=== PATIENT | female | born 2000 | race Caucasian/White ===

== ENCOUNTER 2018-12-27 19:20 | Emergency (ER) | payer OTHER ==
--- NOTE | 2018-12-27 20:15 | EDM.PDOC ---
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 She is a 1 para 0 abortives 0. Her last menstrual period was 11/19/2018. She's been having some lower abdominal cramping since Sunday. It seems like it got much worse tonight and it's more in the left lower quadrant. She had a beta-hCG G Quant done on the it was 23 and on the it was 183. This seems to be a little low for a normal since she supposed to be 4.5 weeks approximately now. The cramping got worse this evening so she comes to the ER. She denies any urinary symptoms. She denies any spotting or bleeding. She does not appear to be in great distress presently. She 's had no recent illnesses no colds no cough no fever or chills. 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 Denies: Constipation, Diarrhea : Denies: Discharge, Dysuria Musculoskeletal: Reports: No Symptoms Skin: Reports: No Symptoms Neurological: Reports: No Symptoms Psychiatric: Reports: No Symptoms Hematologic/Lymphatic: Reports: No Symptoms ED EXAM - Physical Exam Exam: See Below Exam Limited By: No Limitations General Appearance: Alert, WD/WN, No Apparent Distress Eye Exam: Bilateral Eye: Normal Inspection Ears: Normal External Exam Nose: Normal Inspection Throat/Mouth: Normal Inspection, Normal Lips, Normal Voice, No Airway Compromise Head: Normocephalic Neck: Supple Respiratory/Chest: No Respiratory Distress, Lungs Clear, Normal Breath Sounds Cardiovascular: Regular Rate, Rhythm, No Murmur GI/Abdominal Exam: Normal Bowel Sounds, Soft, No Distention, Other (Palpation of the abdomen reveals no upper abdominal tenderness, there is no right lower quadrant tenderness and minimal midline abdominal tenderness, she has some slight tenderness in the left lower quadrant but there is no guarding there is no rigidity and there is no rebound.) Back Exam: Full Range of Motion Extremities: Normal Inspection, Normal Range of Motion Neurological: Alert, Oriented Psychiatric: Normal Affect, Normal Mood Skin Exam: Warm, Dry Course - Vital Signs Last Recorded V/S: Last Vital Signs Temp 98.2 F 12/27/18 19:29 Pulse 120 H 12/27/18 19:29 Resp 18 12/27/18 19:29 BP 138/81 12/27/18 19:29 Pulse Ox 100 12/27/18 19:29 - Orders/Labs/Meds Orders: Active Orders 24 hr Category Date Time Status OB Transvaginal [US] Stat Exams 12/27/18 21:12 Taken PATIENT RETYPE [BBK] Routine Lab 12/27/18 20:30 Results Labs: Laboratory Tests 12/27/18 12/27/18 12/27/18 Range/Units 20:02 20:02 20:30 HCG, Quant 983.0 mIU/mL Urine Color Yellow (Yellow) Urine Appearance Clear (Clear) Urine pH 5.5 (5.0-8.0) Ur Specific [place] > or = 1.030 (1.005-1.030) Urine Protein Trace H (Negative) Urine Glucose (UA) Negative (Negative) Urine Ketones 1+ H (Negative) Urine Occult Blood Negative (Negative) Urine Nitrite Negative (Negative) Urine Bilirubin Negative (Negative) Urine Urobilinogen 0.2 (0.2-1.0) Ur Leukocyte Esterase Negative (Negative) Urine RBC 0-5 (0-5) /hpf Urine WBC 0-5 (0-5) /hpf Ur Squamous Epith Cells 5-10 H (0-5) /hpf Urine Bacteria Few (FEW) /hpf Urine Mucus Many H (FEW) /hpf Blood Type O NEGATIVE - Radiology Interpretation Free Text/Narrative:: Ultrasound shows a tiny gestational sac in the uterus that is too early to date there was no other acute findings. - Re-Assessments/Exams Free Text/Narrative Re-Assessment/Exam: 12/27/18 23:58 I spoke to the patient regarding her test results blood work and the ultrasound. She is to follow up with Dr. Vernon by calling his office on Sunday and let them know that she was here in the ER. Departure - Departure Time of Disposition: 23:59 Disposition: Home, Self-Care 01 Condition: Good Clinical Impression: First trimester , Abdominal cramps - Discharge Information *PRESCRIPTION DRUG MONITORING PROGRAM REVIEWED*: Not Applicable *COPY OF PRESCRIPTION DRUG MONITORING REPORT IN PATIENT AKBAR: Not Applicable Referrals: Froy Vernon MD [Primary Care Provider] - Forms: ED Department Discharge Additional Instructions: Continue with gentle activity, if there is marked worsening of her symptoms or vaginal bleeding return to the ER, otherwise follow up with Dr. Dela Cruz and call his office on Sunday regarding your visit in the ER today and he will follow you for your . - My Orders Last 24 Hours: My Active Orders 12/27/18 20:30 PATIENT RETYPE [BBK] Routine 12/27/18 21:12 OB Transvaginal [US] Stat - Assessment/Plan Last 24 Hours: My Active Orders 12/27/18 20:30 PATIENT RETYPE [BBK] Routine 12/27/18 21:12 OB Transvaginal [US] Stat
--- NOTE | 2018-12-31 07:00 | US ---
Obstetrical ultrasound: Multiple real-time images were obtained transvaginally. Very small cystic area noted within the endometrial cavity. Very early is a possibility. Maternal right ovary not visualized, maternal left ovary is unremarkable. Small amount of free fluid is seen within the pelvis believed to be incidental. Impression: 1. Small cystic area within the endometrial cavity possibly due to very early . Follow-up exam recommended in 11-14 days to confirm. 2. Other incidental findings. Diagnostic code #2 I agree with preliminary report from [facility], finalized on 12/28/18, 12:46 AM Central Time
== END 2018-12-28 00:06 | disposition home or self-care (01) ==
LOC: JD.ED 19:20
DX: O99.89 Other specified diseases and conditions complicating pregnancy, childbirth and the puerperium (principal); R10.32 Left lower quadrant pain; Z88.1 Allergy status to other antibiotic agents; Z3A.01 Less than 8 weeks gestation of pregnancy
CPT/HCPCS: 36415; 76817; 76817-26; 81001; 84702; 86900; 86901; 99282; 99284-25

== ENCOUNTER 2019-08-28 06:39 | Inpatient (IN) | payer OTHER ==
[~2019-08-28 06:39] MED LIST: Bupivacaine 0.25% 10 ML SDV ONE
[2019-08-28] MEDS ORDERED: Misoprostol 100 MCG Tab VAG PRN (19:21)
[2019-08-28] MEDS ORDERED: Sodium Chloride 0.9% 10 ML Syringe FLUSH PRN (19:21)
[2019-08-28] MEDS ORDERED: Acetaminophen 325 MG Tab PO PRN (19:21)
[2019-08-28] MEDS ORDERED: Nalbuphine 10 MG/ML Syringe IVPUSH PRN (19:21)
[2019-08-28] MEDS ORDERED: Oxytocin/Lactated Ringers 10 UNIT/1,000 ML BAG IV SCH (19:30)
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
[2019-08-28] MEDS ORDERED: Misoprostol 25 MCG (1/4 of 100 MCG) Tab ONE (19:43)
[2019-08-28] MEDS ORDERED: Misoprostol 25 MCG (1/4 of 100 MCG) Tab VAG PRN (19:49)
--- NOTE | 2019-08-29 00:30 | PCM.PNLD ---
Labor Progress Note - VS & Meds Vital Signs: Last Vital Signs Temp 36.5 C 08/28/19 19:15 Pulse 108 H 08/28/19 19:15 Resp 16 08/28/19 19:15 BP 149/85 H 08/28/19 19:15 Pulse Ox 99 08/28/19 19:15 Active Medications: Current Medications Acetaminophen (Tylenol) 650 mg PO Q6H PRN PRN Reason: Pain (Mild 1-3) and fever Lactated Ringer's (Ringers, Lactated) 1,000 mls @ 40 mls/hr IV ASDIRECTED MINA Oxytocin/Lactated Ringer's (Pitocin In Lr 10 Units/1,000 Ml) 10 unit in 1,000 mls @ 100 mls/hr IV .CONTINUOUS MINA; Protocol Misoprostol (Cytotec) 25 mcg VAG Q4H PRN PRN Reason: cervical ripening Last Admin: 08/28/19 19:48 Dose: 25 mcg Nalbuphine HCl (Nubain) 10 mg IVPUSH Q2H PRN PRN Reason: Pain Sodium Chloride (Saline Flush) 10 ml FLUSH ASDIRECTED PRN PRN Reason: Keep Vein Open Discontinued Medications Misoprostol (Cytotec) 25 mcg VAG Q4H PRN PRN Reason: cervical ripening Misoprostol (Cytotec) Confirm Administered Dose 25 mcg .ROUTE .STK-MED ONE Stop: 08/28/19 19:44 Last Admin: 08/28/19 20:29 Dose: Not Given - Uterine Contractions Uterine Monitoring Mode: External [place] Contraction Frequency (min): 1.5-2.5 Contraction Duration (sec): 45-60 Contraction Intensity: Moderate to Strong Uterine Resting Tone: Soft - Monitoring Monitor Mode: Doppler/Auscultation Heart Rate (FHR) Baseline: 135 Heart Rate (FHR) Variability: Moderate (6-25 bmp) Accelerations: Present, 15x15 Decelerations: None Strip Review: Category I - Vaginal Exam Dilation (cm): 5 Effacement (Percent): 90 Station: -3 Cervical Position: Anterior Sterile Vaginal Exam Performed By: Froy Vernon Vaginal Exam Comment: Artificial rupture membranes performed with [place] with return of clear fluid. Mother and infant tolerated procedure without difficulty. - Labor Progress (Free Text) Labor Progress: * Patient with good progress after Mustafa bulb came out. Mustafa bulb was removed at approximately 12 AM and patient was noted to be 5 cm dilated at that time. * She continues to have mild range blood pressures and we will check CMP and urine protein/creatinine ratio at this time. Suspect that patient may be developing gestational hypertension versus preeclampsia without severe features. No symptoms of severe features of preeclampsia at this time. * Continuous monitoring with rupture of membranes * Patient may have epidural for anesthesia as desired * Anticipate vaginal delivery unless otherwise indicated. Froy Vernon MD 12:30 AM 08/29/2019
[2019-08-29] MEDS: Lactated Ringers 1,000 ML IV SCH ×3 (01:19→03:21)
[2019-08-29] MEDS ORDERED: Oxytocin/Lactated Ringers 10 UNIT/1,000 ML BAG IV SCH ×2 (01:30→07:54)
[2019-08-29] MEDS ORDERED: fentaNYL/Bupivacaine/NS 2 MCG-0.125% 250 ML EPIDUR PRN (01:47)
[2019-08-29] MEDS ORDERED: fentaNYL 100 MCG/2 ML SDV EPIDUR PRN (01:47)
[2019-08-29] MEDS ORDERED: ePHEDrine 50 MG/ML SDV IVPUSH PRN (01:47)
--- NOTE | 2019-08-29 01:49 | PCM.PREANE ---
Preanesthetic Assessment - Anesthesia/Transfusion/Family Hx Anesthesia History: No Prior Anesthesia Family History of Anesthesia Reaction: No Transfusion History: No Prior Transfusion(s) Intubation History: Unknown - Review of Systems General: No Symptoms Pulmonary: No Symptoms Cardiovascular: No Symptoms (elevated blood pressure today) Gastrointestinal: No Symptoms (GERD with ), Nausea Neurological: No Symptoms Other: Reports: None, Depression, Anxiety - Physical Assessment NPO Status Date: 08/28/19 NPO Status Time: 18:30 Vital Signs: Last Vital Signs Temp 36.5 C 08/28/19 19:15 Pulse 108 H 08/28/19 19:15 Resp 16 08/28/19 19:15 BP 149/85 H 08/28/19 19:15 Pulse Ox 99 08/28/19 19:15 Height: 1.68 m Weight: 111.13 kg ASA Class: 2 Mental Status: Alert & Oriented x3 Airway Class: Mallampati = 2 Dentition: Reports: Normal Dentition, Caries Thyro-Mental Finger Breadths: 3 Mouth Opening Finger Breadths: 3 ROM/Head Extension: Full Lungs: Clear to Auscultation, Normal Respiratory Effort Cardiovascular: Regular Rate, Regular Rhythm, No Murmurs - Lab Values: Laboratory Last Values WBC 9.49 K/mm3 (3.98-10.04) 08/28/19 19:40 RBC 4.66 M/mm3 (3.98-5.22) 08/28/19 19:40 Hgb 11.8 gm/dl (11.2-15.7) 08/28/19 19:40 Hct 37.6 % (34.1-44.9) 08/28/19 19:40 MCV 80.7 fl (79.4-94.8) 08/28/19 19:40 MCH 25.3 pg (25.6-32.2) L 08/28/19 19:40 MCHC 31.4 g/dl (32.2-35.5) L 08/28/19 19:40 RDW Std Deviation 43.3 fL (36.4-46.3) 08/28/19 19:40 Plt Count 189 K/mm3 (182-369) D 08/28/19 19:40 MPV 10.9 fl (9.4-12.3) 08/28/19 19:40 Neut % (Auto) 68.3 % (34.0-71.1) 08/28/19 19:40 Lymph % (Auto) 19.4 % (19.3-51.7) 08/28/19 19:40 [place] % (Auto) 9.8 % (4.7-12.5) 08/28/19 19:40 Eos % (Auto) 1.8 (0.7-5.8) 08/28/19 19:40 Baso % (Auto) 0.1 % (0.1-1.2) 08/28/19 19:40 Neut # (Auto) 6.48 K/mm3 (1.56-6.13) H 08/28/19 19:40 Lymph # (Auto) 1.84 K/mm3 (1.18-3.74) 08/28/19 19:40 [place] # (Auto) 0.93 K/mm3 (0.24-0.36) H 08/28/19 19:40 Eos # (Auto) 0.17 K/mm3 (0.04-0.36) 08/28/19 19:40 Baso # (Auto) 0.01 K/mm3 (0.01-0.08) 08/28/19 19:40 Sodium 135 mEq/L (136-145) L 08/29/19 00:40 Potassium 4.0 mEq/L (3.5-5.1) 08/29/19 00:40 Chloride 102 mEq/L (98-107) 08/29/19 00:40 Carbon Dioxide 21 mEq/L (21-32) 08/29/19 00:40 Anion Gap 16.0 (5-15) H 08/29/19 00:40 BUN 12 mg/dL (7-18) 08/29/19 00:40 Creatinine 0.7 mg/dL (0.55-1.02) 08/29/19 00:40 Est Cr Clr Drug Dosing 120.01 mL/min 08/29/19 00:40 Estimated GFR (MDRD) > 60 mL/min (>60) 08/29/19 00:40 BUN/Creatinine Ratio 17.1 (14-18) 08/29/19 00:40 Glucose 95 mg/dL (74-106) 08/29/19 00:40 Calcium 8.6 mg/dL (8.5-10.1) 08/29/19 00:40 Total Bilirubin 0.2 mg/dL (0.2-1.0) 08/29/19 00:40 AST 25 U/L (15-37) 08/29/19 00:40 ALT 27 U/L (14-59) 08/29/19 00:40 Alkaline Phosphatase 183 U/L (46-116) H 08/29/19 00:40 Total Protein 6.8 g/dl (6.4-8.2) 08/29/19 00:40 Albumin 2.6 g/dl (3.4-5.0) L 08/29/19 00:40 Globulin 4.2 gm/dL 08/29/19 00:40 Albumin/Globulin Ratio 0.6 (1-2) L 08/29/19 00:40 Ur Random Creatinine 95.0 mg/dL (30.0-125.0) 08/29/19 00:25 U Random Total Protein 63.0 mg/dL (0.0-11.8) H 08/29/19 00:25 Protein/Creatinin Ratio 663.2 mg/g (0-149) H 08/29/19 00:25 RPR Non-reactive (NONREACTIVE) 08/28/19 19:40 Above labs reviewed and noted and within acceptable ranges to proceed with epidural. - Allergies Allergies/Adverse Reactions: Allergies Allergy/AdvReac Type Severity Reaction Status Date / Time amoxicillin Allergy Rash Verified 08/28/19 19:38 - Anesthesia Plan Pre-Op Medication Ordered: None - Acknowledgements Anesthesia Type Planned: Epidural Pt an Appropriate Candidate for the Planned Anesthesia: Yes Alternatives and Risks of Anesthesia Discussed w Pt/Guardian: Yes Pt/Guardian Understands and Agrees with Anesthesia Plan: Yes PreAnesthesia Questionnaire HEENT History: Reports: Impaired Vision Other HEENT History: Wears glasses [employer] History: Reports: Other OB/BYN History: Currently Psychiatric History: Reports: Anxiety, Depression Hematologic History: Reports: Anemia - SUBSTANCE USE Smoking Status *Q: Never Smoker Tobacco Use Within Last Twelve Months: No Recreational Drug Use History: No - HOME MEDS Home Medications: Home Meds Pnv No.95/Ferrous Fum/Folic AC [ Caplet] 1 tab PO DAILY 12/27/18 [ History] Ondansetron [Zofran ODT] 4 mg PO Q6H PRN 08/28/19 [History] - CURRENT (IN HOUSE) MEDS Current Meds: Current Medications Acetaminophen (Tylenol) 650 mg PO Q6H PRN PRN Reason: Pain (Mild 1-3) and fever Lactated Ringer's (Ringers, Lactated) 1,000 mls @ 40 mls/hr IV ASDIRECTED MINA Last Admin: 08/29/19 01:19 Dose: 999 mls/hr Oxytocin/Lactated Ringer's (Pitocin In Lr 10 Units/1,000 Ml) 10 unit in 1,000 mls @ 100 mls/hr IV .CONTINUOUS MINA; Protocol Oxytocin/Lactated Ringer's (Pitocin In Lr 10 Units/1,000 Ml) 10 unit in 1,000 mls @ 12 mls/hr IV TITRATE MINA; Protocol Misoprostol (Cytotec) 25 mcg VAG Q4H PRN PRN Reason: cervical ripening Last Admin: 08/28/19 19:48 Dose: 25 mcg Nalbuphine HCl (Nubain) 10 mg IVPUSH Q2H PRN PRN Reason: Pain Sodium Chloride (Saline Flush) 10 ml FLUSH ASDIRECTED PRN PRN Reason: Keep Vein Open Discontinued Medications Misoprostol (Cytotec) 25 mcg VAG Q4H PRN PRN Reason: cervical ripening Misoprostol (Cytotec) Confirm Administered Dose 25 mcg .ROUTE .STK-MED ONE Stop: 08/28/19 19:44 Last Admin: 08/28/19 20:29 Dose: Not Given
[2019-08-29] MEDS ORDERED: Bupivacaine/fentaNYL/NS 100 ML Bag EPIDUR PRN (01:50)
[2019-08-29] MEDS ORDERED: Phenylephrine 1 MG in Sodium Chloride 0.9% 10 ML IV SCH (02:00)
--- NOTE | 2019-08-29 07:29 | PCM.DEL ---
L & D Note - General Info Date of Service: 08/29/19 Mother's Due Date: 09/02/19 - Delivery Note Labor: Augmented by ARM, Augmented by Oxytocin Cervical Ripening Method: Balloon Device (16 Monegasque Mustafa bulb catheter filled with 50 mL of sterile saline), Misoprostil, Oxytocin Delivery Outcome: Livebirth Infant Delivery Method: Spontaneous Vaginal Delivery-Single Presentation: Right Occiput Anterior (BOLA) Nuchal Cord: None Anesthesia Type: Epidural Amniotic Fluid Description: Clear Episiotomy Type: None Laceration: Other (Bilateral inferior hymenal ring tears that were repaired with interrupted figure-of-8 sutures with 4-0 Vicryl) Suture type: Vicryl Suture size: 4-0 Placenta: Intact, Spontaneous Cord: 3 Vessels Estimated Blood Loss: 250 Resuscitation Needed: Yes : Suctioned, Bulb Syringe, Stimulated, Warmed, [place] Used, Warmer Used Provider: Froy Vernon Score 1 min: 4 Score 5 min: 9 Second Stage Interventions: Reports: Pushing Effectively, Pushing, Pulls Own Legs Back, Pushing, Stirrups/Leg Supports Delivery Comments (Free Text/Narrative):: Stage I: Francisca Parmar was admitted for elective induction of labor. On admission her cervix was dilated to 1.5 cm. She was GBS negative. She had a 16 Monegasque transcervical Mustafa bulb placed manually and filled with 50 mL of sterile saline. She was given 1 dose of Cytotec for cervical ripening. The Mustafa bulb came out spontaneously approximately 4 hours after placement. She had artificial rupture membranes with clear fluid. She had persistently mildly elevated blood pressures and additional labs were sent for evaluation of preeclampsia. Her creatinine liver enzymes were normal. Her urine protein/ creatinine ratio was elevated at 0.663. Patient diagnosed with severe preeclampsia at this time. She was given an epidural for anesthesia. She was started on Pitocin for augmentation of labor. She progressed to complete and pushing. Stage II: On 08/29/2019 she had a normal vaginal delivery of a live male infant at 06:39. Apgars of 4 & 9. Weight of 3380 g (7 lbs 7.2 oz). Length of 20.5 inches. There was no nuchal cord. Infant was delivered in BOLA position. The cord was doubly clamped and cut by father of the infant. Infant was placed on mother's abdomen and taken to the warmer for additional resuscitation due to low 1 minute of 4. Stage III: She had a spontaneous delivery of an intact placenta in [place] presentation. Three vessel cord. She was given pitocin and fundal massage. She had bilateral inferior hymenal ring tears from the underlying vaginal tissue that were bleeding. The right side had 2 interrupted [id number] sutures with 4-0 Vicryl for hemostasis. A interrupted [id number] suture was placed on the left side with 4-0 Vicryl and hemostasis was noted. Mom and baby were stable to recovery. EBL of 250 mL. Froy Vernon MD 7:17 AM 08/29/2019 Induction Criteria - Thompson Score Thompson Score Dilation: 1-2 cm Thompson Score Effacement: 60-70% Thompson Score Infant's Station: -3 Thompson Score Consistency: Medium Thompson Score Cervix Position: Anterior Thompson Score Total: 6 Thompson Score Presenting Part: Reports: Cephalic - Induction Gestational Age >/= 39 wks: Yes Estimated Pelvis: Reports: Adequate Reassuring Monitoring Strip: Yes Absence of Tachy Systole: Yes - Augmentation Estimated Pelvis: Reports: Adequate Weight Estimated:: Reports: AGA Reassuring Monitoring Strip: Yes Absence of Tachy Systole: Yes - General Info Date of Service: 08/29/19 - Patient Data Vitals - Most Recent: Last Vital Signs Temp 36.5 C 08/28/19 19:15 Pulse 108 H 08/28/19 19:15 Resp 16 08/28/19 19:15 BP 149/85 H 08/28/19 19:15 Pulse Ox 99 08/28/19 19:15 Weight - Most Recent: 111.13 kg I&O - Last 24 Hours: Intake & Output 08/28/19 08/29/19 08/29/19 22:59 06:59 14:59 Intake Total 2000 Output Total 600 Balance 1400 Lab Results Last 24 Hours: Laboratory Results - last 24 hr 08/28/19 08/28/19 08/29/19 Range/Units 19:40 19:40 00:25 WBC 9.49 (3.98-10.04) K/mm3 RBC 4.66 (3.98-5.22) M/mm3 Hgb 11.8 (11.2-15.7) gm/dl Hct 37.6 (34.1-44.9) % MCV 80.7 (79.4-94.8) fl MCH 25.3 L (25.6-32.2) pg MCHC 31.4 L (32.2-35.5) g/dl RDW Std Deviation 43.3 (36.4-46.3) fL Plt Count 189 D (182-369) K/mm3 MPV 10.9 (9.4-12.3) fl Neut % (Auto) 68.3 (34.0-71.1) % Lymph % (Auto) 19.4 (19.3-51.7) % [place] % (Auto) 9.8 (4.7-12.5) % Eos % (Auto) 1.8 (0.7-5.8) Baso % (Auto) 0.1 (0.1-1.2) % Neut # (Auto) 6.48 H (1.56-6.13) K/mm3 Lymph # (Auto) 1.84 (1.18-3.74) K/mm3 [place] # (Auto) 0.93 H (0.24-0.36) K/mm3 Eos # (Auto) 0.17 (0.04-0.36) K/mm3 Baso # (Auto) 0.01 (0.01-0.08) K/mm3 Sodium (136-145) mEq/L Potassium (3.5-5.1) mEq/L Chloride (98-107) mEq/L Carbon Dioxide (21-32) mEq/L Anion Gap (5-15) BUN (7-18) mg/dL Creatinine (0.55-1.02) mg/dL Est Cr Clr Drug Dosing mL/min Estimated GFR (MDRD) (>60) mL/min BUN/Creatinine Ratio (14-18) Glucose (74-106) mg/dL Calcium (8.5-10.1) mg/dL Total Bilirubin (0.2-1.0) mg/dL AST (15-37) U/L ALT (14-59) U/L Alkaline Phosphatase (46-116) U/L Total Protein (6.4-8.2) g/dl Albumin (3.4-5.0) g/dl Globulin gm/dL Albumin/Globulin Ratio (1-2) Ur Random Creatinine 95.0 (30.0-125.0) mg/dL U Random Total Protein 63.0 H (0.0-11.8) mg/dL Protein/Creatinin Ratio 663.2 H (0-149) mg/g RPR Non-reactive (NONREACTIVE) 08/29/19 Range/Units 00:40 WBC (3.98-10.04) K/mm3 RBC (3.98-5.22) M/mm3 Hgb (11.2-15.7) gm/dl Hct (34.1-44.9) % MCV (79.4-94.8) fl MCH (25.6-32.2) pg MCHC (32.2-35.5) g/dl RDW Std Deviation (36.4-46.3) fL Plt Count (182-369) K/mm3 MPV (9.4-12.3) fl Neut % (Auto) (34.0-71.1) % Lymph % (Auto) (19.3-51.7) % [place] % (Auto) (4.7-12.5) % Eos % (Auto) (0.7-5.8) Baso % (Auto) (0.1-1.2) % Neut # (Auto) (1.56-6.13) K/mm3 Lymph # (Auto) (1.18-3.74) K/mm3 [place] # (Auto) (0.24-0.36) K/mm3 Eos # (Auto) (0.04-0.36) K/mm3 Baso # (Auto) (0.01-0.08) K/mm3 Sodium 135 L (136-145) mEq/L Potassium 4.0 (3.5-5.1) mEq/L Chloride 102 (98-107) mEq/L Carbon Dioxide 21 (21-32) mEq/L Anion Gap 16.0 H (5-15) BUN 12 (7-18) mg/dL Creatinine 0.7 (0.55-1.02) mg/dL Est Cr Clr Drug Dosing 120.01 mL/min Estimated GFR (MDRD) > 60 (>60) mL/min BUN/Creatinine Ratio 17.1 (14-18) Glucose 95 (74-106) mg/dL Calcium 8.6 (8.5-10.1) mg/dL Total Bilirubin 0.2 (0.2-1.0) mg/dL AST 25 (15-37) U/L ALT 27 (14-59) U/L Alkaline Phosphatase 183 H (46-116) U/L Total Protein 6.8 (6.4-8.2) g/dl Albumin 2.6 L (3.4-5.0) g/dl Globulin 4.2 gm/dL Albumin/Globulin Ratio 0.6 L (1-2) Ur Random Creatinine (30.0-125.0) mg/dL U Random Total Protein (0.0-11.8) mg/dL Protein/Creatinin Ratio (0-149) mg/g RPR (NONREACTIVE) Med Orders - Current: Current Medications Acetaminophen (Tylenol) 650 mg PO Q6H PRN PRN Reason: Pain (Mild 1-3) and fever Ephedrine Sulfate (Ephedrine Sulfate) 5 mg IVPUSH ASDIRECTED PRN PRN Reason: Hypotension Fentanyl (Sublimaze) 100 mcg EPIDUR Q3H PRN PRN Reason: Pain Last Admin: 08/29/19 01:57 Dose: 100 mcg Fentanyl/Bupivacaine HCl (Fentanyl/Bupivacaine/Ns 2 Mcg-0.125% 100 Ml) 0 ml EPIDUR CONTINUOUS PRN PRN Reason: Pain Last Admin: 08/29/19 01:57 Dose: 100 ml Lactated Ringer's (Ringers, Lactated) 1,000 mls @ 40 mls/hr IV ASDIRECTED MINA Last Admin: 08/29/19 03:21 Dose: 999 mls/hr Oxytocin/Lactated Ringer's (Pitocin In Lr 10 Units/1,000 Ml) 10 unit in 1,000 mls @ 100 mls/hr IV .CONTINUOUS MINA; Protocol Oxytocin/Lactated Ringer's (Pitocin In Lr 10 Units/1,000 Ml) 10 unit in 1,000 mls @ 12 mls/hr IV TITRATE MINA; Protocol Last Titration: 08/29/19 06:40 Dose: 999 mls/hr Phenylephrine HCl 1 mg/ Sodium (Chloride) 10.1 mls @ 1 mls/sec IV TITRATE MINA; Protocol Misoprostol (Cytotec) 25 mcg VAG Q4H PRN PRN Reason: cervical ripening Last Admin: 08/28/19 19:48 Dose: 25 mcg Nalbuphine HCl (Nubain) 10 mg IVPUSH Q2H PRN PRN Reason: Pain Sodium Chloride (Saline Flush) 10 ml FLUSH ASDIRECTED PRN PRN Reason: Keep Vein Open Discontinued Medications Fentanyl/Bupivacaine HCl (Fentanyl/Bupivacaine/Ns 2 Mcg-0.125% 250 Ml) 0 ml EPIDUR CONTINUOUS PRN PRN Reason: Pain Misoprostol (Cytotec) 25 mcg VAG Q4H PRN PRN Reason: cervical ripening Misoprostol (Cytotec) Confirm Administered Dose 25 mcg .ROUTE .[employer]-MED ONE Stop: 08/28/19 19:44 Last Admin: 08/28/19 20:29 Dose: Not Given - Problem List & Annotations (1) Rh negative status during SNOMED Code(s): 632238894 Code(s): O26.899 - OTH RELATED CONDITIONS, UNSPECIFIED TRIMESTER; Z67.91 - UNSPECIFIED BLOOD TYPE, RH NEGATIVE Status: Acute Current Visit: Yes (2) Preeclampsia SNOMED Code(s): 442897570 Code(s): O14.90 - UNSPECIFIED PRE-ECLAMPSIA, UNSPECIFIED TRIMESTER Status: Acute Current Visit: Yes (3) Vaginal delivery SNOMED Code(s): 157728929 Code(s): O80 - ENCOUNTER FOR FULL-TERM UNCOMPLICATED DELIVERY Status: Acute Current Visit: Yes (4) First degree perineal laceration during delivery SNOMED Code(s): 960342488 Code(s): O70.0 - FIRST DEGREE PERINEAL LACERATION DURING DELIVERY Status: Acute Current Visit: Yes (5) 39 weeks gestation of SNOMED Code(s): 35564962 Code(s): Z3A.39 - 39 WEEKS GESTATION OF Status: Acute Current Visit: Yes (6) Polymorphic eruption of SNOMED Code(s): 24507081 Code(s): O26.86 - PRURITIC URTICARIAL PAPULES AND PLAQUES OF (PUPPP ) Status: Acute Current Visit: Yes (7) Anxiety SNOMED Code(s): 38325743 Code(s): F41.9 - ANXIETY DISORDER, UNSPECIFIED Status: Acute Current Visit: No - Problem List Review Problem List Initiated/Reviewed/Updated: Yes - My Orders Last 24 Hours: My Active Orders 01/23/20 19:21 Urinary Catheter Assessment [RC] ASDIRECTED Acetaminophen [Tylenol] 650 mg PO Q6H PRN Nalbuphine [Nubain] 10 mg IVPUSH Q2H PRN Sodium Chloride 0.9% [Saline Flush] 10 ml FLUSH ASDIRECTED PRN Resuscitation Status Routine 08/28/19 19:22 Activity as Tolerated [RC] PFP Communication Order [RC] ASDIRECTED Communication Order [RC] ASDIRECTED Communication Order [RC] ASDIRECTED Monitoring [RC] INTERMITTENT Notify Provider [RC] ASDIRECTED Notify Provider [RC] PFP Notify Provider [RC] PRN Peripheral IV Care [RC] Q2HR Up ad Berta [RC] ASDIRECTED Electronic Heart Tones Ext w TOCO [WOMSER] Routine Electronic Heart Tones Internal [WOMSER] Per Unit Routine Peripheral IV Insertion Adult [OM.PC] Routine 08/28/19 19:23 Patient Status [ADT] Routine Notify Provider [RC] ASDIRECTED 08/28/19 19:25 Notify Provider Vital Signs [RC] PRN Pump Management, Intrathecal [RC] ASDIRECTED 08/28/19 19:30 Lactated Ringers [Ringers, Lactated] 1,000 ml IV ASDIRECTED Oxytocin/Lactated Ringers [Pitocin in LR 10 Units/1,000 ML] 10 unit in 1,000 ml IV .CONTINUOUS Medication Administration Instruction [OM.PC] ASDIRECTED 08/28/19 19:49 miSOPROStoL [Cytotec] 25 mcg VAG Q4H PRN 08/28/19 Dinner Regular Diet [DIET] 08/29/19 01:29 Communication Order [RC] ASDIRECTED Notify Provider [RC] ASDIRECTED 08/29/19 01:30 Oxytocin/Lactated Ringers [Pitocin in LR 10 Units/1,000 ML] 10 unit in 1,000 ml IV TITRATE 08/29/19 07:18 Patient Status Manage Transfer [TRANSFER] Routine - Plan Plan:: Admit to inpatient following normal spontaneous vaginal delivery Continue Pitocin per unit protocol following delivery of placenta and lactated Ringer's until tolerating regular diet Regular diet Vitals per unit routine Ibuprofen and Tylenol for pain control Assist with breast-feeding as needed Continue to monitor lochia Patient with Rh- status and will evaluate Rh status and administer RhoGam as indicated Anticipate discharge home on day #1 or 2 depending on status Froy Vernon MD 7:17 AM 08/29/2019
[2019-08-29] MEDS ORDERED: Benzocaine/Menthol 20%-0.5% Spray 56 GM Canister TOP PRN (07:54)
[2019-08-29] MEDS ORDERED: Hydrocortisone Acetate 25 MG Supp RECTAL PRN (07:54)
[2019-08-29] MEDS ORDERED: Witch Hazel Medicated Pads 40/Jar TOP PRN (07:54)
[2019-08-29] MEDS: Ondansetron 4 MG Tab.DIS PO PRN (12:11)
[2019-08-29] MEDS: Acetaminophen 325 MG Tab PO PRN (16:45)
[2019-08-29] MEDS: Prenatal Multivitamin with Calcium/Folic Acid/Iron Tab PO SCH (19:54)
[2019-08-29] MEDS: Ibuprofen 600 MG Tab PO PRN (20:45)
[2019-08-29] MEDS: Docusate Sodium 100 MG Cap PO PRN (20:45)
--- NOTE | 2019-08-30 07:07 | PCM.PNPP ---
- General Info Date of Service: 08/30/19 Functional Status: Reports: Pain Controlled, Tolerating Diet, Ambulating, Urinating - Review of Systems General: Reports: No Symptoms Pulmonary: Reports: No Symptoms Cardiovascular: Reports: No Symptoms Gastrointestinal: Reports: Abdominal Pain (managed with medications ) Genitourinary: Reports: No Symptoms Musculoskeletal: Reports: No Symptoms Neurological: Reports: No Symptoms - Patient Data Vital Signs - Most Recent: Last Vital Signs Temp 36.4 C 08/30/19 03:24 Pulse 88 08/30/19 03:24 Resp 14 08/30/19 03:24 BP 126/66 08/30/19 03:24 Pulse Ox 99 08/30/19 03:24 Weight - Most Recent: 111.13 kg I&O - Last 24 Hours: Intake & Output 08/29/19 08/30/19 08/30/19 22:59 06:59 14:59 Intake Total 482 Balance 482 Lab Results - Last 24 Hours: Laboratory Results - last 24 hr 08/29/19 Range/Units 15:15 Blood Type O NEGATIVE Gel Antibody Screen Positive Screen 0 ros/5 flds - neg RhIG Candidate? Yes Rhogam Indicated Yes, baby rh pos H Med Orders - Current: Current Medications Acetaminophen (Tylenol) 650 mg PO Q6H PRN PRN Reason: mild pain or fever Last Admin: 08/29/19 16:45 Dose: 650 mg Benzocaine/Menthol (Dermoplast Pain Relief Valentine) 0 gm TOP ASDIRECTED PRN PRN Reason: Perineal Comfort Measure Docusate Sodium (Colace) 100 mg PO BID PRN PRN Reason: Constipation Last Admin: 08/29/19 20:45 Dose: 100 mg Hydrocortisone Acetate (Anucort-Hc) 25 mg RECTAL BID PRN PRN Reason: Hemorrhoid pain Oxytocin/Lactated Ringer's (Pitocin In Lr 10 Units/1,000 Ml) 10 unit in 1,000 mls @ 100 mls/hr IV TITRATE MINA; Protocol Ibuprofen (Motrin) 600 mg PO Q6H PRN PRN Reason: Mild pain or fever Last Admin: 08/29/19 20:45 Dose: 600 mg Ondansetron HCl (Zofran Odt) 4 mg PO Q4H PRN PRN Reason: Nausea/Vomiting Last Admin: 08/29/19 12:11 Dose: 4 mg Prenat Multivit/Net Development Manager/Iron/Folic Ac ( Plus Iron) 1 each PO DAILY MINA Last Admin: 08/29/19 19:54 Dose: Not Given Sabrina Pearson (Tucks) 1 pad TOP ASDIRECTED PRN PRN Reason: Perineal Comfort Measure Discontinued Medications Acetaminophen (Tylenol) 650 mg PO Q6H PRN PRN Reason: Pain (Mild 1-3) and fever Bupivacaine HCl (Sensorcaine-Mpf 0.25%) 10 ml .ROUTE .[employer]-MED ONE Stop: 08/28/19 00:01 Ephedrine Sulfate (Ephedrine Sulfate) 5 mg IVPUSH ASDIRECTED PRN PRN Reason: Hypotension Fentanyl (Sublimaze) 100 mcg EPIDUR Q3H PRN PRN Reason: Pain Last Admin: 08/29/19 01:57 Dose: 100 mcg Fentanyl/Bupivacaine HCl (Fentanyl/Bupivacaine/Ns 2 Mcg-0.125% 250 Ml) 0 ml EPIDUR CONTINUOUS PRN PRN Reason: Pain Fentanyl/Bupivacaine HCl (Fentanyl/Bupivacaine/Ns 2 Mcg-0.125% 100 Ml) 0 ml EPIDUR CONTINUOUS PRN PRN Reason: Pain Last Admin: 08/29/19 01:57 Dose: 100 ml Lactated Ringer's (Ringers, Lactated) 1,000 mls @ 40 mls/hr IV ASDIRECTED MINA Last Admin: 08/29/19 03:21 Dose: 999 mls/hr Oxytocin/Lactated Ringer's (Pitocin In Lr 10 Units/1,000 Ml) 10 unit in 1,000 mls @ 100 mls/hr IV .CONTINUOUS MINA; Protocol Oxytocin/Lactated Ringer's (Pitocin In Lr 10 Units/1,000 Ml) 10 unit in 1,000 mls @ 12 mls/hr IV TITRATE MINA; Protocol Last Titration: 08/29/19 06:40 Dose: 999 mls/hr Phenylephrine HCl 1 mg/ Sodium (Chloride) 10.1 mls @ 1 mls/sec IV TITRATE MINA; Protocol Misoprostol (Cytotec) 25 mcg VAG Q4H PRN PRN Reason: cervical ripening Misoprostol (Cytotec) Confirm Administered Dose 25 mcg .ROUTE .[employer] ONE Stop: 08/28/19 19:44 Last Admin: 08/28/19 20:29 Dose: Not Given Misoprostol (Cytotec) 25 mcg VAG Q4H PRN PRN Reason: cervical ripening Last Admin: 08/28/19 19:48 Dose: 25 mcg Nalbuphine HCl (Nubain) 10 mg IVPUSH Q2H PRN PRN Reason: Pain Sodium Chloride (Saline Flush) 10 ml FLUSH ASDIRECTED PRN PRN Reason: Keep Vein Open - Interaction Infant Disposition, : in Room with Family Interaction: Holding Feeding: Attempted ; Nursed Fair/Poor, Bottle Fed Infant Support Person: Significant Other - Recovery Exam Fundal Tone: Firm Fundal Level: 1 Fingerbreadths Below Umbilicus Fundal Placement: Midline Lochia Amount: Scant, Small Lochia Color: Rubra/Red Perineum Description: Other (see below) Other Perinuem Description: Hymen laceration with repair Episiotomy/Laceration: Approximated Bladder Status: Voiding - Exam General: Alert, Oriented, Cooperative GI/Abdominal Exam: Soft, Non-Tender Extremities: Normal Inspection Skin: Warm, Dry, Intact - Problem List & Annotations (1) Vaginal delivery SNOMED Code(s): 259769706 Code(s): O80 - ENCOUNTER FOR FULL-TERM UNCOMPLICATED DELIVERY Status: Acute Current Visit: Yes - Problem List Review Problem List Initiated/Reviewed/Updated: Yes - Assessment Assessment:: PPD#1 - Plan Plan:: Routine cares Breast and bottle feeding BP's normal after delivery Discharge home tomorrow
[2019-08-30] MEDS: Acetaminophen 325 MG Tab PO PRN (07:23)
[2019-08-30] MEDS: Ibuprofen 600 MG Tab PO PRN ×3 (08:45→21:01)
[2019-08-30] MEDS: Prenatal Multivitamin with Calcium/Folic Acid/Iron Tab PO SCH (08:46)
--- NOTE | 2019-08-30 09:55 | PCM48HPAN ---
Post Anesthesia Note - EVALUATION WITHIN 48HRS OF ANESTHETIC Vital Signs in Normal Range: Yes Patient Participated in Evaluation: Yes Respiratory Function Stable: Yes Airway Patent: Yes Cardiovascular Function Stable: Yes Hydration Status Stable: Yes Pain Control Satisfactory: Yes (minor soreness in the back. reiterated importance of preventing back strain) Nausea and Vomiting Control Satisfactory: Yes Mental Status Recovered: Yes Vital Signs: Last Vital Signs Temp 97.5 F 08/30/19 03:24 Pulse 88 08/30/19 03:24 Resp 14 08/30/19 03:24 BP 126/66 08/30/19 03:24 Pulse Ox 99 08/30/19 03:24
[2019-08-30] MEDS: Docusate Sodium 100 MG Cap PO PRN (21:03)
[2019-08-30] MEDS: Ondansetron 4 MG Tab.DIS PO PRN (21:59)
[2019-08-31] MEDS: Ibuprofen 600 MG Tab PO PRN ×2 (03:35→08:40)
--- NOTE | 2019-08-31 07:09 | PCM.DCSUM1 ---
Discharge Summary - Discharge Data Discharge Date: 08/31/19 Discharge Disposition: Home, Self-Care 01 Condition: Good - Referral to Home Health Primary Care Physician: Froy Vernon MD - Discharge Diagnosis/Problem(s) (1) Vaginal delivery SNOMED Code(s): 833929752 ICD Code: O80 - ENCOUNTER FOR FULL-TERM UNCOMPLICATED DELIVERY Status: Acute Current Visit: Yes - Patient Summary/Data Complications: None Consults: None Recommended Follow-up Testing/Procedures: Follow up in 1-2 weeks for check Hospital Course: 18 y/o admitted for elective IOL at 39 weeks. This was done with cytotec and then pitocin. She did well and underwent an uncomplicated . See delivery note. did well and was discharged home on PPD#2 - Patient Instructions Diet: Regular Diet as Tolerated Activity: As Tolerated Activity, Other: Pelvic rest for 6 weeks Driving: May Drive Today Showering/Bathing: May Shower Showering/Bathing, Other: May Bathe Notify Provider of: Fever, Increased Pain, Swelling and Redness, Drainage, Nausea and/or Vomiting - Discharge Plan *PRESCRIPTION DRUG MONITORING PROGRAM REVIEWED*: No *COPY OF PRESCRIPTION DRUG MONITORING REPORT IN PATIENT AKBAR: No Home Medications: Home Meds Pnv No.95/Ferrous Fum/Folic AC [ Caplet] 1 tab PO DAILY 12/27/18 [ History] Ibuprofen [Motrin] 600 mg PO Q6H PRN tablet 08/30/19 [Rx] Referrals: Froy Vernon MD [Primary Care Provider] - (1-2 weeks for check ) - Discharge Summary/Plan Comment DC Time >30 min.: No - Patient Data Vitals - Most Recent: Last Vital Signs Temp 36.9 C 08/31/19 03:28 Pulse 65 08/31/19 03:28 Resp 15 08/31/19 03:28 BP 127/69 08/31/19 03:28 Pulse Ox 97 08/31/19 03:28 Weight - Most Recent: 111.13 kg Med Orders - Current: Current Medications Acetaminophen (Tylenol) 650 mg PO Q6H PRN PRN Reason: mild pain or fever Last Admin: 08/30/19 07:23 Dose: 650 mg Benzocaine/Menthol (Dermoplast Pain Relief [place]) 0 gm TOP ASDIRECTED PRN PRN Reason: Perineal Comfort Measure Docusate Sodium (Colace) 100 mg PO BID PRN PRN Reason: Constipation Last Admin: 08/30/19 21:03 Dose: 100 mg Hydrocortisone Acetate (Anucort-Hc) 25 mg RECTAL BID PRN PRN Reason: Hemorrhoid pain Oxytocin/Lactated Ringer's (Pitocin In Lr 10 Units/1,000 Ml) 10 unit in 1,000 mls @ 100 mls/hr IV TITRATE MINA; Protocol Ibuprofen (Motrin) 600 mg PO Q6H PRN PRN Reason: Mild pain or fever Last Admin: 08/30/19 21:01 Dose: 600 mg Ondansetron HCl (Zofran Odt) 4 mg PO Q4H PRN PRN Reason: Nausea/Vomiting Last Admin: 08/30/19 21:59 Dose: 4 mg Prenat Multivit/[place]/Iron/Folic Ac ( Plus Iron) 1 each PO DAILY MINA Last Admin: 08/30/19 08:46 Dose: 1 each Witch Lili (Tucks) 1 pad TOP ASDIRECTED PRN PRN Reason: Perineal Comfort Measure Last Admin: 08/30/19 22:00 Dose: 1 tub Discontinued Medications Acetaminophen (Tylenol) 650 mg PO Q6H PRN PRN Reason: Pain (Mild 1-3) and fever Bupivacaine HCl (Sensorcaine-Mpf 0.25%) 10 ml .ROUTE .STK-MED ONE Stop: 08/28/19 00:01 Ephedrine Sulfate (Ephedrine Sulfate) 5 mg IVPUSH ASDIRECTED PRN PRN Reason: Hypotension Fentanyl (Sublimaze) 100 mcg EPIDUR Q3H PRN PRN Reason: Pain Last Admin: 08/29/19 01:57 Dose: 100 mcg Fentanyl/Bupivacaine HCl (Fentanyl/Bupivacaine/Ns 2 Mcg-0.125% 250 Ml) 0 ml EPIDUR CONTINUOUS PRN PRN Reason: Pain Fentanyl/Bupivacaine HCl (Fentanyl/Bupivacaine/Ns 2 Mcg-0.125% 100 Ml) 0 ml EPIDUR CONTINUOUS PRN PRN Reason: Pain Last Admin: 08/29/19 01:57 Dose: 100 ml Lactated Ringer's (Ringers, Lactated) 1,000 mls @ 40 mls/hr IV ASDIRECTED MINA Last Admin: 08/29/19 03:21 Dose: 999 mls/hr Oxytocin/Lactated Ringer's (Pitocin In Lr 10 Units/1,000 Ml) 10 unit in 1,000 mls @ 100 mls/hr IV .CONTINUOUS MINA; Protocol Oxytocin/Lactated Ringer's (Pitocin In Lr 10 Units/1,000 Ml) 10 unit in 1,000 mls @ 12 mls/hr IV TITRATE MINA; Protocol Last Titration: 08/29/19 06:40 Dose: 999 mls/hr Phenylephrine HCl 1 mg/ Sodium (Chloride) 10.1 mls @ 1 mls/sec IV TITRATE MINA; Protocol Misoprostol (Cytotec) 25 mcg VAG Q4H PRN PRN Reason: cervical ripening Misoprostol (Cytotec) Confirm Administered Dose 25 mcg .ROUTE .[facility] ONE Stop: 08/28/19 19:44 Last Admin: 08/28/19 20:29 Dose: Not Given Misoprostol (Cytotec) 25 mcg VAG Q4H PRN PRN Reason: cervical ripening Last Admin: 08/28/19 19:48 Dose: 25 mcg Nalbuphine HCl (Nubain) 10 mg IVPUSH Q2H PRN PRN Reason: Pain Sodium Chloride (Saline Flush) 10 ml FLUSH ASDIRECTED PRN PRN Reason: Keep Vein Open
[2019-08-31] MEDS: Docusate Sodium 100 MG Cap PO PRN (08:38)
[2019-08-31] MEDS: Prenatal Multivitamin with Calcium/Folic Acid/Iron Tab PO SCH (08:39)
== END 2019-08-31 10:00 | disposition home or self-care (01) | DRG 807 ==
LOC: JD.OB 06:39 → OBSVTOIN 08-29 06:39 → JD.OB 08-29 06:40
PROVIDERS: ADMIT Obstetrics & Gynecology; ATTEND Obstetrics & Gynecology
PROC: 10E0XZZ Delivery of Products of Conception, External Approach (ICD-10-PCS; principal; 2019-08-29)
PROC: 0HQ9XZZ Repair Perineum Skin, External Approach (ICD-10-PCS; 2019-08-29)
PROC: 3E0P7VZ Introduction of Hormone into Female Reproductive, Via Natural or Artificial Opening (ICD-10-PCS; 2019-08-29)
PROC: 3E0R3BZ Introduction of Anesthetic Agent into Spinal Canal, Percutaneous Approach (ICD-10-PCS; 2019-08-29)
PROC: 00HU33Z Insertion of Infusion Device into Spinal Canal, Percutaneous Approach (ICD-10-PCS; 2019-08-29)
PROC: 3E0334Z Introduction of Serum, Toxoid and Vaccine into Peripheral Vein, Percutaneous Approach (ICD-10-PCS; 2019-08-29)
DX: O14.14 Severe pre-eclampsia complicating childbirth (principal); Z37.0 Single live birth; O26.86 Pruritic urticarial papules and plaques of pregnancy (PUPPP); O99.344 Other mental disorders complicating childbirth; F41.9 Anxiety disorder, unspecified; O26.893 Other specified pregnancy related conditions, third trimester; Z67.41 Type O blood, Rh negative; O70.0 First degree perineal laceration during delivery; Z3A.39 39 weeks gestation of pregnancy
CPT/HCPCS: 01967; 36415; 36430; 51702; 59025; 59409; 80053; 82570; 84156; 85025; 86592; A9270-GY; J2590; J2790; J3010; J3490; J7120

== ENCOUNTER 2019-11-10 08:46 | Emergency (ER) | payer OTHER ==
[2019-11-10] MEDS ORDERED: Ondansetron 4 MG/2 ML SDV IVPUSH ONE (09:10)
[2019-11-10] MEDS ORDERED: Sodium Chloride 0.9% 10 ML Syringe FLUSH PRN (09:10)
[2019-11-10] MEDS ORDERED: Ketorolac 30 MG/ML SDV IVPUSH ONE (09:11)
--- NOTE | 2019-11-10 09:16 | EDM.PDOC ---
ED HPI GENERAL MEDICAL PROBLEM - General Chief Complaint: Abdominal Pain Stated Complaint: RIGHT SIDE ABDOMINAL PAIN Time Seen by Provider: 11/10/19 09:06 Source of Information: Reports: Patient History Limitations: Reports: No Limitations - History of Present Illness INITIAL COMMENTS - FREE TEXT/NARRATIVE: The patient presents with right flank, right lower abdominal pain and nausea. This started yesterday with nausea and then she developed the flank and abdominal pain. She has no vomiting yet. She has no fever or chills. She has no chest pain, shortness of breath, or cough. She has no dysuria or hematuria. She has no history of kidney stones. She still has her gallbladder and appendix. Onset: Gradual Duration: Day(s): (yesterday) Location: Reports: Abdomen, Back Quality: Reports: Sharp Severity: Moderate Improves with: Reports: None Worsens with: Reports: None Associated Symptoms: Reports: Nausea/Vomiting. Denies: Chest Pain, Cough, Fever /Chills, Headaches, Shortness of Breath Right Abdomen Pain Score (Numeric/FACES): 5 - Related Data Allergies Allergy/AdvReac Type Severity Reaction Status Date / Time amoxicillin Allergy Rash Verified 11/10/19 09:10 Home Meds: Home Meds Cephalexin [Keflex] 500 mg PO BID #10 capsule 11/10/19 [Rx] Past Medical History HEENT History: Reports: Impaired Vision Other HEENT History: Wears glasses [employer] History: Reports: Other [employer] History: Currently Psychiatric History: Reports: Anxiety, Depression Hematologic History: Reports: Anemia Social & Family History - Family History Family Medical History: Noncontributory - Caffeine Use Caffeine Use: Reports: Tea ED ROS GENERAL - Review of Systems Review Of Systems: See Below Constitutional: Reports: No Symptoms HEENT: Reports: No Symptoms Respiratory: Reports: No Symptoms Cardiovascular: Reports: No Symptoms Endocrine: Reports: No Symptoms GI/Abdominal: Reports: Abdominal Pain, Nausea. Denies: Diarrhea, Vomiting : Reports: Flank Pain (right) Musculoskeletal: Reports: Back Pain (right flank) ED EXAM, GI/ABD - Physical Exam Exam: See Below Exam Limited By: No Limitations General Appearance: Alert, No Apparent Distress Ears: Normal External Exam Nose: Normal Inspection Head: Atraumatic, Normocephalic Neck: Normal Inspection Respiratory/Chest: No Respiratory Distress, Lungs Clear, Normal Breath Sounds Cardiovascular: Regular Rate, Rhythm, No Edema, No Murmur GI/Abdominal Exam: Soft, No Organomegaly, No Mass, Tender (Moderate tenderness to the right lower abdomen) Back Exam: CVA Tenderness (R) (and to the lower right back) Extremities: Normal Inspection Course - Vital Signs Last Recorded V/S: Last Vital Signs Temp Pulse 80 11/10/19 09:06 Resp 16 11/10/19 09:06 BP 117/69 11/10/19 09:06 Pulse Ox 96 11/10/19 09:06 - Orders/Labs/Meds Orders: Active Orders 24 hr Category Date Time Status Peripheral IV Care [RC] . DIRECTED Care 11/10/19 09:10 Active Sodium Chloride 0.9% [Saline Flush] Med 11/10/19 09:10 Active 10 ml FLUSH ASDIRECTED PRN ED Antiemetic Medication Reflex [OM.PC] Stat Oth 11/10/19 09:10 Ordered Peripheral IV Insertion Adult [OM.PC] Stat Oth 11/10/19 09:10 Ordered Medication Orders Sodium Chloride (Saline Flush) 10 ml FLUSH ASDIRECTED PRN PRN Reason: Keep Vein Open Last Admin: 11/10/19 09:23 Dose: 10 ml Labs: Laboratory Tests 11/10/19 11/10/19 11/10/19 Range/Units 09:20 09:20 09:20 WBC 5.60 (3.98-10.04) K/mm3 RBC 4.97 (3.98-5.22) M/mm3 Hgb 12.9 (11.2-15.7) gm/dl Hct 41.0 (34.1-44.9) % MCV 82.5 (79.4-94.8) fl MCH 26.0 (25.6-32.2) pg MCHC 31.5 L (32.2-35.5) g/dl RDW Std Deviation 40.9 (36.4-46.3) fL Plt Count 293 D (182-369) K/mm3 MPV 10.1 (9.4-12.3) fl Neut % (Auto) 57.1 (34.0-71.1) % Lymph % (Auto) 34.1 (19.3-51.7) % [place] % (Auto) 7.5 (4.7-12.5) % Eos % (Auto) 0.9 (0.7-5.8) Baso % (Auto) 0.2 (0.1-1.2) % Neut # (Auto) 3.20 (1.56-6.13) K/mm3 Lymph # (Auto) 1.91 (1.18-3.74) K/mm3 [place] # (Auto) 0.42 H (0.24-0.36) K/mm3 Eos # (Auto) 0.05 (0.04-0.36) K/mm3 Baso # (Auto) 0.01 (0.01-0.08) K/mm3 Manual Slide Review Not Reportable Sodium 141 (136-145) mEq/L Potassium 3.8 (3.5-5.1) mEq/L Chloride 107 (98-107) mEq/L Carbon Dioxide 24 (21-32) mEq/L Anion Gap 13.8 (5-15) BUN 13 (7-18) mg/dL Creatinine 0.8 (0.55-1.02) mg/dL Est Cr Clr Drug Dosing 105.01 mL/min Estimated GFR (MDRD) > 60 (>60) mL/min BUN/Creatinine Ratio 16.3 (14-18) Glucose 91 (74-106) mg/dL Calcium 8.8 (8.5-10.1) mg/dL Total Bilirubin 0.4 (0.2-1.0) mg/dL AST 29 (15-37) U/L ALT 49 (14-59) U/L Alkaline Phosphatase 79 (46-116) U/L Total Protein 7.0 (6.4-8.2) g/dl Albumin 3.7 (3.4-5.0) g/dl Globulin 3.3 gm/dL Albumin/Globulin Ratio 1.1 (1-2) Lipase 72 L (73-393) U/L HCG, Qual Negative (NEGATIVE) Urine Color (Yellow) Urine Appearance (Clear) Urine pH (5.0-8.0) Ur Specific [place] (1.005-1.030) Urine Protein (Negative) Urine Glucose (UA) (Negative) Urine Ketones (Negative) Urine Occult Blood (Negative) Urine Nitrite (Negative) Urine Bilirubin (Negative) Urine Urobilinogen (0.2-1.0) Ur Leukocyte Esterase (Negative) Urine RBC (0-5) /hpf Urine WBC (0-5) /hpf Ur Squamous Epith Cells (0-5) /hpf Urine Bacteria (FEW) /hpf Urine Mucus (FEW) /hpf 11/10/19 Range/Units 11:22 WBC (3.98-10.04) K/mm3 RBC (3.98-5.22) M/mm3 Hgb (11.2-15.7) gm/dl Hct (34.1-44.9) % MCV (79.4-94.8) fl MCH (25.6-32.2) pg MCHC (32.2-35.5) g/dl RDW Std Deviation (36.4-46.3) fL Plt Count (182-369) K/mm3 MPV (9.4-12.3) fl Neut % (Auto) (34.0-71.1) % Lymph % (Auto) (19.3-51.7) % [place] % (Auto) (4.7-12.5) % Eos % (Auto) (0.7-5.8) Baso % (Auto) (0.1-1.2) % Neut # (Auto) (1.56-6.13) K/mm3 Lymph # (Auto) (1.18-3.74) K/mm3 [place] # (Auto) (0.24-0.36) K/mm3 Eos # (Auto) (0.04-0.36) K/mm3 Baso # (Auto) (0.01-0.08) K/mm3 Manual Slide Review Sodium (136-145) mEq/L Potassium (3.5-5.1) mEq/L Chloride (98-107) mEq/L Carbon Dioxide (21-32) mEq/L Anion Gap (5-15) BUN (7-18) mg/dL Creatinine (0.55-1.02) mg/dL Est Cr Clr Drug Dosing mL/min Estimated GFR (MDRD) (>60) mL/min BUN/Creatinine Ratio (14-18) Glucose (74-106) mg/dL Calcium (8.5-10.1) mg/dL Total Bilirubin (0.2-1.0) mg/dL AST (15-37) U/L ALT (14-59) U/L Alkaline Phosphatase (46-116) U/L Total Protein (6.4-8.2) g/dl Albumin (3.4-5.0) g/dl Globulin gm/dL Albumin/Globulin Ratio (1-2) Lipase (73-393) U/L HCG, Qual (NEGATIVE) Urine Color Yellow (Yellow) Urine Appearance Clear (Clear) Urine pH 6.0 (5.0-8.0) Ur Specific [place] 1.025 (1.005-1.030) Urine Protein Negative (Negative) Urine Glucose (UA) Negative (Negative) Urine Ketones Negative (Negative) Urine Occult Blood Negative (Negative) Urine Nitrite Negative (Negative) Urine Bilirubin Negative (Negative) Urine Urobilinogen 0.2 (0.2-1.0) Ur Leukocyte Esterase Trace H (Negative) Urine RBC 0-5 (0-5) /hpf Urine WBC 5-10 H (0-5) /hpf Ur Squamous Epith Cells 0-5 (0-5) /hpf Urine Bacteria Few (FEW) /hpf Urine Mucus Few (FEW) /hpf Meds: Medications Generic Name Dose Route Start Last Admin Trade Name Valentin PRN Reason Stop Dose Admin Sodium Chloride 10 ml 11/10/19 09:10 11/10/19 09:23 Saline Flush FLUSH 10 ml ASDIRECTED PRN Administration Keep Vein Open Discontinued Medications Generic Name Dose Route Start Last Admin Trade Name Valentin PRN Reason Stop Dose Admin Ketorolac Tromethamine 30 mg 11/10/19 09:11 11/10/19 09:22 Toradol IVPUSH 11/10/19 09:12 30 mg ONETIME ONE Administration Ondansetron HCl 4 mg 11/10/19 09:10 11/10/19 09:21 Zofran IVPUSH 11/10/19 09:11 4 mg ONETIME ONE Administration - Re-Assessments/Exams Free Text/Narrative Re-Assessment/Exam: 11/10/19 09:14 I ordered an IV saline lock, labs, UA, zofran 4mg IV, toradol 30mg IV and a CT of his abdomen and pelvis without contrast to look for a kidney stone. 11/10/19 11:34 Her CBC and CMP look good. Her Hcg is negative. Her lipase is low. Her CT shows no renal calculi, ureteral dilatation or ureteral stone is seen. Nothing acute is appreciated on noncontrast CT study of the abdomen and pelvis. 11/10/19 11:42 Her UA has some WBCs, leukocyte esterase and bacteria. I will get her on some keflex 2 times per day for 5 days. Departure - Departure Time of Disposition: 11:45 Disposition: Home, Self-Care 01 Condition: Good Clinical Impression: Abdominal pain Qualifiers: Abdominal location: right lower quadrant Qualified Code(s): R10.31 - Right lower quadrant pain UTI (urinary tract infection) Qualifiers: Urinary tract infection type: acute cystitis Hematuria presence: without hematuria Qualified Code(s): N30.00 - Acute cystitis without hematuria - Discharge Information *PRESCRIPTION DRUG MONITORING PROGRAM REVIEWED*: Not Applicable *COPY OF PRESCRIPTION DRUG MONITORING REPORT IN PATIENT AKBAR: Not Applicable Prescriptions: Cephalexin [Keflex] 500 mg PO BID #10 capsule Referrals: PCP,None [Primary Care Provider] - Forms: ED Department Discharge Additional Instructions: Drink plenty of fluids. Take the keflex 2 times per day for 5 days. Take zofran as needed for nausea and vomiting. Take tylenol or motrin for pain. Please return if you are worse. Sepsis Event Note - Evaluation Sepsis Screening Result: No Definite Risk - Focused Exam Vital Signs: Vital Signs Pulse Resp BP Pulse Ox 11/10/19 09:06 80 16 117/69 96 Date Exam was Performed: 11/10/19 Time Exam was Performed: 11:42 - My Orders Last 24 Hours: My Active Orders 11/10/19 09:10 Peripheral IV Care [RC] . DIRECTED Sodium Chloride 0.9% [Saline Flush] 10 ml FLUSH ASDIRECTED PRN ED Antiemetic Medication Reflex [OM.PC] Stat Peripheral IV Insertion Adult [OM.PC] Stat - Assessment/Plan Last 24 Hours: My Active Orders 11/10/19 09:10 Peripheral IV Care [RC] . DIRECTED Sodium Chloride 0.9% [Saline Flush] 10 ml FLUSH ASDIRECTED PRN ED Antiemetic Medication Reflex [OM.PC] Stat Peripheral IV Insertion Adult [OM.PC] Stat
--- NOTE | 2019-11-10 10:45 | CT ---
CT abdomen and pelvis Technique: Multiple axial sections were obtained from above the dome of the diaphragm inferiorly through the pubic symphysis. Intravenous and oral contrast was not utilized. Study has been performed as a ureteral stone protocol. Findings: Kidneys show no abnormal calcifications. No ureteral dilatation or ureteral stone is seen. No bladder calculi are noted. Visualized lung bases show nothing acute. Noncontrast appearance of the liver appears within normal limits. Spleen also appears within normal limits. Adrenal glands show no nodule. Pancreas shows no discrete abnormality. Gallbladder contains no calcified gallstones. Aorta shows no aneurysm. No retroperitoneal adenopathy or mesenteric abnormalities are seen. No pelvic mass or adenopathy is seen. IUD is present within the uterus. No free fluid or inflammatory change is seen. Appendix is visualized and appears within normal limits in size. Bone window settings were reviewed. No acute osseous finding is appreciated. Impression: 1. No renal calculi, ureteral dilatation or ureteral stone is seen. 2. Nothing acute is appreciated on noncontrast CT study of the abdomen and pelvis. Diagnostic code #1 This report was dictated in MDT
== END 2019-11-10 12:00 | disposition home or self-care (01) ==
LOC: JD.ED 08:46
DX: N30.00 Acute cystitis without hematuria (principal); Z88.1 Allergy status to other antibiotic agents
CPT/HCPCS: 36415; 74176; 80053; 81001; 83690; 84703; 85025; 96374; 96375; 99284; J1885; J2405